=== PATIENT | male | born 1960 | race Caucasian/White ===

== ENCOUNTER 2022-10-07 13:00 | Outpatient (RCR) | payer BC, SELFPAY ==
--- NOTE | 2022-09-01 13:40 | MHC.PT.EP ---
[facility] [place] Office [place] [facility] [place] Office [address] Edna Eid [address] [phone] F: [phone] F: [phone] F: [phone] F: [phone] Physical Therapy Plan of Care Date of Evaluation: Date of Surgery: n/a Diagnosis: Parkinsons diesease/big program Assessment: Patient is a 61 year old male presenting to PT with complaints onset of tremor s/p recent diagnosis of parkinsons disease. He presents today with impairments in amplitude of movement, R sided resting tremor, altered gait mechanics. Pt's current occupation is retired with baseline physical activities including ADLs, ambulating, golf, bowling. 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 Clinical presentation today is most consistent with signs and sx associated with recent diagnosis of parkinsons disease and pt will benefit from skilled PT to address the following problems and impairments noted upon evaluation: amplitude of movement, R sided resting tremor, altered gait mechanics. These problems limit the patient with the following functional activities: ADLs, ambulating, golf, bowling. The prescribed treatment plan of care is medically necessary. Co-morbidities of hypertrophic cardiomyopathy, L ventricular aneurysm were identified and taken into considerations of plan of care. Pt was educated on HEP, role of PT, prognosis, POC. Frequency and Duration: The patient will be seen 4 x week x 4 weeks Short Term Goals: Pt will demonstrate ability to stand with NBOS on foam EC x 30 sec with minimal sway in 2 weeks. Pt will demonstrate compliance with initial BIG HEP in 1 week. [employer] Goals: Pt will demonstrate ability to perform BIG walking without cues in 4 weeks for improved ability to negotiate community. Pt will demonstrate ability to swing a golf club with BIG movements in 4 weeks for ability to participate in his hobby. Treatment Plan: Modalities to reduce pain, spasms and effusion. Manual therapy to restore motion and function. Therapeutic exercise to improve strength and flexibility. Neuromuscular re-education for posture and balance. Therapeutic activities to return to functional activities of daily living. Electronically signed by: Patt Griggs, PT, DPT, ATC Please sign and return to therapist. Thank you for your referral.
== END 2022-10-07 14:04 | disposition home or self-care (01) ==
LOC: HO.PTCHIC 13:00
PROVIDERS: PCP Internal Medicine; Visit Provider Psychiatry & Neurology Neurology
DX: G20 Parkinson's disease (principal)
CPT/HCPCS: 97112; 97116; 97162; 97530

== ENCOUNTER → 2022-11-07 10:55 | Outpatient (BNVA) | payer BC, SELFPAY | PROVIDERS: PCP Internal Medicine; Visit Provider Psychiatry & Neurology Neurology | DX: G20 Parkinson's disease (principal) ==

== ENCOUNTER 2023-05-08 10:35 | Outpatient (AMB) | payer BC, SELFPAY ==
--- NOTE | 2023-05-08 10:35 | A.OFFVIS_ITS ---
Intake Vital Signs 05/08/23 10:36 Height 5 ft 7 in Weight 154 lb 4 oz BMI 24.2 BP 128/88 Blood Pressure Location Rt brachial Position Sitting Pulse 56 Pulse Source Pulse Oximeter Pulse Oximetry (%) 98 Oxygen Delivery Method Room Air Intake Visit Reasons: 6m follow up tremor-lvm Intake Note: Patient presents for 6 month up tremor. Allergies No Known Allergies Allergy (Verified 05/08/23 10:38) HPI HPI Comments History of Present Illness Details 62y/o Right handed male comes for follow up of parkinsons disease. He is accompanied by his Heidi.He is sinemet tid. He is doing well. He is more bothered by his back. He is active - walks 2-3 miles a day, does exercise form the [employer] program. He had a cardiac surgery 3 weeks ago. previous history-He noticed intermittent right hand tremors about 3 years ago and it has progressively worsened since then .The tremors are mostly at rest .In the past 1 year the tremors are more frequent and noticable He had ICD put in 2019 and his feels it started 5 mths after that He denies memory issues. Sleep is ok . he denies nightmares, vivid dreams , REM behavior disorder. His mood is Ok and he is motivated. His speech is softer and loses his voice after exertion. No drooling . He has mild difficulty with hand writing( smaller) , using utensils, dressing , shower. His gait is slow and mildly off balance . He feels like his fabian is not there. No dizziness , no double vision . No constipation. No fh/o parkinsons No exposure to pesticides, well water or psyhcotropic medications. [facility] Medical History Hyperlipidemia Hypertrophic cardiomyopathy ICD (implantable cardioverter-defibrillator) in place Left ventricular aneurysm Surgical History AICD (automatic cardioverter/defibrillator) present History of tonsillectomy and adenoidectomy Family History Father Diabetes Heart disease ESRF (end stage renal failure) Mother Diabetes Heart disease Social History Alcohol intake: current Alcohol type: wine Patient Tobacco Use Status: Never used Tobacco Physical Exam Vital Signs: Last Vital Signs Pulse 56 05/08/23 10:36 BP 128/88 05/08/23 10:36 Pulse Ox 98 05/08/23 10:36 Oxygen Delivery Method Room Air 05/08/23 10:36 BMI result Body Mass Index 24.2 Const General: cooperative, healthy appearing and comfortable Nutritional Appearance: average body habitus Orientation/consciousness: patient oriented x3 Neck Other: mild antecollis , left laterocollis Neuro Other: UPDRS - 3 Speech 0-normal 1-Slight loss of expression,diction or volume 2.Monotone,slurred but understandable,moderately impaired 3.Marked impairment,difficult to understand 4.Unintelligible Facial expression 0-normal 1-Minimal hypomimia, poker face 2-Slight but definite abnormal diminution of facial expression 3-Moderate hypomimia,lips parted some of the time 4-Masked or fixed facies withs evere loss of facialexpression, lips parted more than 1/4 inch Rest Tremors( head, Upper, lower ) 0- absent 1-Slight and infrequent 2-Mild in amplitude and persistent- right UE 3-Moderate in amplitude and present most of the time 4-Marked amplitude and present most of the time Action and Postural tremors 0-none 1-Slight with action 2-Moderate with action 3-Moderate with posture and action 4-Marked , interferes with feeding Rigidity 0-Absent 1-Slight or detectable only when activated by mirror movements 2-Mild to Moderate 3-Marked, but full ROM achieved 4-Severe, range of motion achieved with difficulty Finger Taps 0-normal 1-Mild slowing an linda reductionin amplitude 2-Moderately impaired. Early fatiguing and occasional arrests in movement 3-Severely impaired. Frequent hesitation in initiating movements or arrests in ongoing movement. 4-can barely perform the task Hand movements 0-normal 1-mild slowing and or reduction in amplitude 2-Moderately impaired.Definite and early fatiguing, may have occasional arrests in movement. 3-Severely impaired.Frequent hesitation in initiating or arrests in movement. 4-can barely perform the task Rapid Alternating Movements of Hands 0-normal 1-Mild slowing and or reduction in amplitude 2-Moderately impaired.Definite and early fatiguing. 2-Moderately impaired. Definite and early fatiguing. May have occasional arrests in movement. 3-severely impaired.Frequent hesitation in initiating movements or arrests in ongoing movement. 4-can barely perform the task Leg agility 0-normal 1-mild slowing and reduction in amplitude 2-moderately impaired.Definite and early fatiguing , may have occasional arrest in movement. 3-severely impaired.Frequent hesitation in initiating movements or arrests in ongoing movement. 4-can barely perform the task Arising from a chair 0-Normal 1-Slow or may need more than 1 attempt 2-Pushes self up from arms of seat 3-Tends to fall back and may have to try more than one time,but can get up without difficulty 4-Unable to stand without help Posture 0-normal 1-slightly stooped, could be normal for an older person 2-moderately stooped posture, definitely abnormal, can be leaning to one side 3-severely stooped posture with kyphosis, can be moderately leaning to one side 4-Marked flexion with extreme abnormal posture Gait 0-normal 1-walks slowly,may shuffle with short steps, but no festination or propulsion- decreased arm swings R>L 2-walks with difficulty,but requires little or no assistance, may have short steps, festination or propulsion 3-severe, needs assistance 4-cannot walk even with assistance Postural stability 0-normal 1-retropulsion but recovers unaided 2-absence of postural response,will fail if not caught by the examiner 3-very unstable,tends to lose balance spontaneously 4-unable to stand without assistance Body bradykinesia and hypokinesia 0-none 1-minimal slowness,giving movement a deliberate character,could be normal for some persons.Possible reduced amplitude 3-moderate slowness,poverty or small amplitude of movement 4-marked slowness, poverty or small amplitude of movement. severely decreased blink General: patient oriented x3 Cranial nerves: Yes Facial sensation intact/muscles of mastication intact, No Bilaterally intact EOM present, Yes Nystagmus not present, Yes Normal facial strength present and Yes Symmetric palate elevation present Cognition (Neuro): normal cognition Motor exam (neuro): 5/5 motor strength present throughout Coordination: [id number] test normal Psych Appearance: grossly normal Mental Status: mental status grossly normal Assessment & Plan Assessment & Plan (1) Parkinson's disease: Code(s): G20 - Parkinson's disease Plan sinemet 1 tab tid Continue exercises. Coding Level of Care Code Est Pt Level 4 (42585) Diagnoses Parkinson's disease G20
[2023-05-08 10:36] VITALS: BP 128/88; PULSE 56; O2SAT 98; BMI 24.2
== END 2023-05-08 10:55 | disposition home or self-care (01) ==
PROVIDERS: Visit Provider Psychiatry & Neurology Neurology
DX: G20 Parkinson's disease (principal)
CPT/HCPCS: 99214

== ENCOUNTER → 2023-05-08 10:35 | Outpatient (BNVA) | payer BC, SELFPAY | PROVIDERS: Visit Provider Psychiatry & Neurology Neurology | DX: G20 Parkinson's disease (principal) ==

== ENCOUNTER 2023-12-29 10:00 | Outpatient (AMB) | payer OTHER, SELFPAY ==
[2023-12-29 10:18] VITALS: BP 122/70; PULSE 62; RESP 16; O2SAT 97; BMI 23.8
--- NOTE | 2023-12-29 10:18 | MHC.OFFVIS ---
Intake Vital Signs 12/29/23 10:18 Height 5 ft 7 in Weight 152 lb BMI 23.8 BP 122/70 Blood Pressure Location Rt brachial Position Sitting Respiration 16 Pulse 62 Pulse Source Pulse Oximeter Pulse Oximetry (%) 97 Oxygen Delivery Method Room Air Intake Visit Reasons: 6m follow up tremor-LVM Intake Note: Pt presents for a 6 month follow up for tremors. 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 He is accompanied by his Heidi.He is sinemet tid. He is doing well. He is more bothered by his back.He is scheduled for injections. He has noticed a mild worsening of his tremors. He is active - walks 2-3 miles a day, does exercise form the [employer] program. previous history-He noticed intermittent right hand tremors about 3 years ago and it has progressively worsened since then .The tremors are mostly at rest .In the past 1 year the tremors are more frequent and noticable He had ICD put in 2019 and his feels it started 5 mths after that He denies memory issues. Sleep is ok . he denies nightmares, vivid dreams , REM behavior disorder. His mood is Ok and he is motivated. His speech is softer and loses his voice after exertion. No drooling . He has mild difficulty with hand writing( smaller) , using utensils, dressing , shower. His gait is slow and mildly off balance . He feels like his fabian is not there. No dizziness , no double vision . No constipation. No fh/o parkinsons No exposure to pesticides, well water or psyhcotropic medications. [facility] Medical History Parkinson's disease without dyskinesia Elective replacement of implantable cardioverter-defibrillator (ICD) battery required ICD (implantable cardioverter-defibrillator) in place Left ventricular aneurysm Hypertrophic cardiomyopathy Hyperlipidemia Surgical History History of tonsillectomy and adenoidectomy AICD (automatic cardioverter/defibrillator) present Family History Father Diabetes Heart disease ESRF (end stage renal failure) Mother Diabetes Heart disease Social History Alcohol intake: current Alcohol type: wine Patient Tobacco Use Status: Never used Tobacco Physical Exam Vital Signs: Last Vital Signs Pulse 62 12/29/23 10:18 Resp 16 12/29/23 10:18 BP 122/70 12/29/23 10:18 Pulse Ox 97 12/29/23 10:18 Oxygen Delivery Method Room Air 12/29/23 10:18 BMI result Body Mass Index 23.8 Const General: cooperative, healthy appearing and comfortable Nutritional Appearance: average body habitus Orientation/consciousness: patient oriented x3 Neck Other: mild antecollis , left laterocollis Neuro Other: UPDRS - 3 Speech 0-normal 1-Slight loss of expression,diction or volume 2.Monotone,slurred but understandable,moderately impaired 3.Marked impairment,difficult to understand 4.Unintelligible Facial expression 0-normal 1-Minimal hypomimia, poker face 2-Slight but definite abnormal diminution of facial expression 3-Moderate hypomimia,lips parted some of the time 4-Masked or fixed facies withs evere loss of facialexpression, lips parted more than 1/4 inch Rest Tremors( head, Upper, lower ) 0- absent 1-Slight and infrequent 2-Mild in amplitude and persistent- right UE 3-Moderate in amplitude and present most of the time 4-Marked amplitude and present most of the time Action and Postural tremors 0-none 1-Slight with action 2-Moderate with action 3-Moderate with posture and action 4-Marked , interferes with feeding Rigidity 0-Absent 1-Slight or detectable only when activated by mirror movements 2-Mild to Moderate 3-Marked, but full ROM achieved 4-Severe, range of motion achieved with difficulty Finger Taps 0-normal 1-Mild slowing an linda reductionin amplitude 2-Moderately impaired. Early fatiguing and occasional arrests in movement 3-Severely impaired. Frequent hesitation in initiating movements or arrests in ongoing movement. 4-can barely perform the task Hand movements 0-normal 1-mild slowing and or reduction in amplitude 2-Moderately impaired.Definite and early fatiguing, may have occasional arrests in movement. 3-Severely impaired.Frequent hesitation in initiating or arrests in movement. 4-can barely perform the task Rapid Alternating Movements of Hands 0-normal 1-Mild slowing and or reduction in amplitude 2-Moderately impaired.Definite and early fatiguing. 2-Moderately impaired. Definite and early fatiguing. May have occasional arrests in movement. 3-severely impaired.Frequent hesitation in initiating movements or arrests in ongoing movement. 4-can barely perform the task Leg agility 0-normal 1-mild slowing and reduction in amplitude 2-moderately impaired.Definite and early fatiguing , may have occasional arrest in movement. 3-severely impaired.Frequent hesitation in initiating movements or arrests in ongoing movement. 4-can barely perform the task Arising from a chair 0-Normal 1-Slow or may need more than 1 attempt 2-Pushes self up from arms of seat 3-Tends to fall back and may have to try more than one time,but can get up without difficulty 4-Unable to stand without help Posture 0-normal 1-slightly stooped, could be normal for an older person 2-moderately stooped posture, definitely abnormal, can be leaning to one side 3-severely stooped posture with kyphosis, can be moderately leaning to one side 4-Marked flexion with extreme abnormal posture Gait 0-normal 1-walks slowly,may shuffle with short steps, but no festination or propulsion- decreased arm swings R>L 2-walks with difficulty,but requires little or no assistance, may have short steps, festination or propulsion 3-severe, needs assistance 4-cannot walk even with assistance Postural stability 0-normal 1-retropulsion but recovers unaided 2-absence of postural response,will fail if not caught by the examiner 3-very unstable,tends to lose balance spontaneously 4-unable to stand without assistance Body bradykinesia and hypokinesia 0-none 1-minimal slowness,giving movement a deliberate character,could be normal for some persons.Possible reduced amplitude 3-moderate slowness,poverty or small amplitude of movement 4-marked slowness, poverty or small amplitude of movement. severely decreased blink General: patient oriented x3 Cranial nerves: Yes Facial sensation intact/muscles of mastication intact, No Bilaterally intact EOM present, Yes Nystagmus not present, Yes Normal facial strength present and Yes Symmetric palate elevation present Cognition (Neuro): normal cognition Motor exam (neuro): 5/5 motor strength present throughout Coordination: [id number] test normal Psych Appearance: grossly normal Mental Status: mental status grossly normal Assessment & Plan Assessment & Plan (1) Parkinson's disease without dyskinesia: Code(s): G20.A1 - Parkinson's disease without dyskinesia, without mention of fluctuations Plan sinemet 25/100 1 tab tid Continue exercises. Coding Level of Care Code Est Pt Level 4 (93636) Diagnoses Parkinson's disease without dyskinesia G20.A1
== END 2023-12-29 10:37 | disposition home or self-care (01) ==
PROVIDERS: PCP Internal Medicine; Visit Provider Psychiatry & Neurology Neurology
DX: G20.A1 Parkinson's disease without dyskinesia, without mention of fluctuations (principal)
CPT/HCPCS: 99214

== ENCOUNTER → 2023-12-29 10:00 | Outpatient (BNVA) | payer OTHER, SELFPAY | PROVIDERS: PCP Internal Medicine; Visit Provider Psychiatry & Neurology Neurology ==

== ENCOUNTER 2024-06-25 08:30 | Outpatient (AMB) | payer OTHER, SELFPAY ==
--- NOTE | 2024-06-25 08:39 | MHC.OFFVIS ---
Vital Signs 06/25/24 08:40 Height 5 ft 7 in Weight 155 lb BMI 24.3 BP 132/78 Blood Pressure Location Rt brachial Position Sitting Respiration 16 Pulse 66 Pulse Source Pulse Oximeter Pulse Oximetry (%) 98 Oxygen Delivery Method Room Air Intake Visit Reasons: 6 month F/U - LVM with appt details Intake Note: Pt presents for a 6 month follow up for Parkinson's. 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 He is accompanied by his Heidi.He is sinemet tid. He is doing well. He has chronic back pain - sees [facility] and had injections to his back which helped. He has noticed a mild worsening of his tremors. He is active - walks 2-3 miles a day, does exercise form the [employer] program.Sleep is ok . he denies nightmares, vivid dreams , REM behavior disorder. His mood is Ok and he is motivated. His speech is softer and loses his voice after exertion. No drooling . He has mild difficulty with hand writing( smaller) , using utensils, dressing , shower. His gait is slow and mildly off balance . Initial History--He noticed intermittent right hand tremors about 3 years ago and it has progressively worsened since then .The tremors are mostly at rest .In the past 1 year the tremors are more frequent and noticable He had ICD put in 2019 and his feels it started 5 mths after that He denies memory issues. Sleep is ok . he denies nightmares, vivid dreams , REM behavior disorder. His mood is Ok and he is motivated. His speech is softer and loses his voice after exertion. No drooling . He has mild difficulty with hand writing( smaller) , using utensils, dressing , shower. His gait is slow and mildly off balance . He feels like his fabian is not there. No dizziness , no double vision . No constipation. No fh/o parkinsons No exposure to pesticides, well water or psyhcotropic medications. [facility] Medical History (Updated 06/25/24 @ 09:00 by Jeimy Rios MD) Back pain Parkinson's disease without dyskinesia Elective replacement of implantable cardioverter-defibrillator (ICD) battery required ICD (implantable cardioverter-defibrillator) in place Left ventricular aneurysm Hypertrophic cardiomyopathy Hyperlipidemia Surgical History History of tonsillectomy and adenoidectomy AICD (automatic cardioverter/defibrillator) present Family History Father Diabetes Heart disease ESRF (end stage renal failure) Mother Diabetes Heart disease Social History Alcohol intake: current Alcohol type: wine Patient Tobacco Use Status: Never used Tobacco Physical Exam Vital Signs: Last Vital Signs Pulse 66 06/25/24 08:40 Resp 16 06/25/24 08:40 BP 132/78 06/25/24 08:40 Pulse Ox 98 06/25/24 08:40 Oxygen Delivery Method Room Air 06/25/24 08:40 BMI result Body Mass Index 24.3 Const General: cooperative, healthy appearing and comfortable Nutritional Appearance: average body habitus Orientation/consciousness: patient oriented x3 Neck Other: mild antecollis , left laterocollis Neuro Other: UPDRS - 3 Speech 1-Slight loss of expression,diction or volume Facial expression 1-Minimal hypomimia, poker face Rest Tremors( head, Upper, lower) 2-Mild in amplitude and persistent- right UE , right LE and left LE Action and Postural tremors 0-none Rigidity 2-Mild to Moderate Finger Taps 1-Mild slowing and or reduction in amplitude Hand movements 1-mild slowing and or reduction in amplitude Rapid Alternating Movements of Hands 1-Mild slowing and or reduction in amplitude Leg agility 1-mild slowing and reduction in amplitude Arising from a chair 0-Normal Posture 0-normal 1-slightly stooped, could be normal for an older person Gait 1-walks slowly,may shuffle with short steps, but no festination or propulsion- decreased arm swings R>L Postural stability 1-retropulsion but recovers unaided Body bradykinesia and hypokinesia 1-minimal slowness,giving movement a deliberate character,could be normal for some persons.Possible reduced amplitude severely decreased blink General: patient oriented x3 Cranial nerves: Yes Facial sensation intact/muscles of mastication intact, No Bilaterally intact EOM present, Yes Nystagmus not present, Yes Normal facial strength present and Yes Symmetric palate elevation present Cognition (Neuro): normal cognition Motor exam (neuro): 5/5 motor strength present throughout Coordination: [id number] test normal Psych Appearance: grossly normal Mental Status: mental status grossly normal Assessment & Plan Assessment & Plan (1) Parkinson's disease without dyskinesia: Code(s): G20.A1 - Parkinson's disease without dyskinesia, without mention of fluctuations Category: Medical (2) Back pain: Code(s): M54.9 - Dorsalgia, unspecified Category: Medical Plan sinemet 25/100 1 tab tid I will trial him on gabapentin 100-300mg qhs for back pain Continue exercises- suggested therapeutic pool exercises. Coding Level of Care Code Est Pt Level 4 (18541) Complex EM visit Add On G2211 Diagnoses Parkinson's disease without dyskinesia G20.A1 Back pain M54.9
[2024-06-25 08:40] VITALS: BP 132/78; PULSE 66; RESP 16; O2SAT 98; BMI 24.3
== END 2024-06-25 09:10 | disposition home or self-care (01) ==
PROVIDERS: PCP Internal Medicine; Visit Provider Psychiatry & Neurology Neurology
DX: G20.A1 Parkinson's disease without dyskinesia, without mention of fluctuations (principal); M54.9 Dorsalgia, unspecified
CPT/HCPCS: 99214; G2211

== ENCOUNTER → 2024-06-25 08:30 | Outpatient (BNVA) | payer OTHER, SELFPAY | PROVIDERS: PCP Internal Medicine; Visit Provider Psychiatry & Neurology Neurology ==

== ENCOUNTER 2024-11-22 07:56 | Outpatient (AMB) | payer OTHER, SELFPAY ==
[2024-11-22 07:59] VITALS: BP 118/84; PULSE 60; O2SAT 98; BMI 23.8
--- NOTE | 2024-11-22 07:59 | A.OFFVIS_ITS ---
Vital Signs 11/22/24 07:59 Height 5 ft 7 in Weight 152 lb BMI 23.8 BP 118/84 Blood Pressure Location Rt brachial Position Sitting Pulse 60 Pulse Source Pulse Oximeter Pulse Oximetry (%) 98 Oxygen Delivery Method Room Air Intake Visit Reasons: Follow Up 6mo Intake Note: patient following up gabapentin trial. patient not taking gabapentin not working for him. Allergies No Known Allergies Allergy (Verified 11/22/24 08:03) HPI Comments Details: 63y/o Right handed male comes for follow up of parkinsons disease. He is accompanied by his Heidi. He feels his tremors are worse and hand dexterity is worse.He did not try gabapentin as recommended. He has chronic back pain - sees [employer] and sports and had injections to his back which helped. He is active - walks 2-3 miles a day, does exercise form the [employer] program.Sleep is ok . he denies nightmares, vivid dreams , REM behavior disorder. His mood is Ok most of the time but started getting panic attacks since his MRI 3 weeks ago. . His speech is softer and loses his voice after exertion. No drooling . He has mild difficulty with hand writing( smaller) , using utensils, dressing , shower. His gait is slow and mildly off balance . Initial History--He noticed intermittent right hand tremors about 3 years ago and it has progressively worsened since then .The tremors are mostly at rest .In the past 1 year the tremors are more frequent and noticable He had ICD put in 2019 and his feels it started 5 mths after that He denies memory issues. Sleep is ok . he denies nightmares, vivid dreams , REM behavior disorder. His mood is Ok and he is motivated. His speech is softer and loses his voice after exertion. No drooling . He has mild difficulty with hand writing( smaller) , using utensils, dressing , shower. His gait is slow and mildly off balance . He feels like his fabian is not there. No dizziness , no double vision . No constipation. No fh/o parkinsons No exposure to pesticides, well water or psyhcotropic medications. [facility] Medical History (Updated 11/22/24 @ 08:48 by Jeimy Rios MD) Anxiety Back pain Parkinson's disease without dyskinesia Elective replacement of implantable cardioverter-defibrillator (ICD) battery required ICD (implantable cardioverter-defibrillator) in place Left ventricular aneurysm Hypertrophic cardiomyopathy Hyperlipidemia Surgical History History of tonsillectomy and adenoidectomy AICD (automatic cardioverter/defibrillator) present Family History Father Diabetes Heart disease ESRF (end stage renal failure) Mother Diabetes Heart disease Social History Alcohol intake: current Alcohol type: wine Patient Tobacco Use Status: Never used Tobacco Physical Exam Vital Signs: Last Vital Signs Pulse 60 11/22/24 07:59 BP 118/84 11/22/24 07:59 Pulse Ox 98 11/22/24 07:59 Oxygen Delivery Method Room Air 11/22/24 07:59 BMI result Body Mass Index 23.8 Const General: cooperative, healthy appearing and comfortable Nutritional Appearance: average body habitus Orientation/consciousness: patient oriented x3 Neck Other: mild antecollis , left laterocollis Neuro Other: UPDRS - 3 Speech 1-Slight loss of expression,diction or volume Facial expression 1-Minimal hypomimia, poker face Rest Tremors( head, Upper, lower) 2-Mild in amplitude and persistent- right UE , right LE and left LE Action and Postural tremors 0-none Rigidity 2-Mild to Moderate Finger Taps 1-Mild slowing and or reduction in amplitude Hand movements 1-mild slowing and or reduction in amplitude Rapid Alternating Movements of Hands 1-Mild slowing and or reduction in amplitude Leg agility 1-mild slowing and reduction in amplitude Arising from a chair 0-Normal Posture 0-normal 1-slightly stooped, could be normal for an older person Gait 1-walks slowly,may shuffle with short steps, but no festination or propulsion- decreased arm swings R>L Postural stability 1-retropulsion but recovers unaided Body bradykinesia and hypokinesia 1-minimal slowness,giving movement a deliberate character,could be normal for some persons.Possible reduced amplitude severely decreased blink General: patient oriented x3 Cranial nerves: Yes Facial sensation intact/muscles of mastication intact, No Bilaterally intact EOM present, Yes Nystagmus not present, Yes Normal facial strength present and Yes Symmetric palate elevation present Cognition (Neuro): normal cognition Motor exam (neuro): 5/5 motor strength present throughout Coordination: nyxezy-op-xqyr test normal Psych Appearance: grossly normal Mental Status: mental status grossly normal Assessment & Plan Assessment & Plan (1) Parkinson's disease without dyskinesia: Code(s): G20.A1 - Parkinson's disease without dyskinesia, without mention of fluctuations Category: Medical Qualifiers: Fluctuating manifestations: without fluctuating manifestations Qualified Code(s): G20.A1 - Parkinson's disease without dyskinesia, without mention of fluctuations (2) Back pain: Code(s): M54.9 - Dorsalgia, unspecified Category: Medical (3) Anxiety: Code(s): F41.9 - Anxiety disorder, unspecified Category: Medical Plan sinemet 25/100 1 tab tid gabapentin 100-300mg qhs for back pain Lorazepam 0.5mg a sneeded for panic attacks Continue exercises- suggested therapeutic pool exercises. Medications: New lorazepam (Ativan) 0.5 mg PO DAILY PRN 14 tabs 3RF anxiety Coding Level of Care Code Est Pt Level 4 (33263) Complex EM visit Add On G2211 Diagnoses Parkinson's disease without dyskinesia or fluctuating manifestations G20.A1 Fluctuating manifestations: without fluctuating manifestations Back pain M54.9 Anxiety F41.9
== END 2024-11-22 08:39 | disposition home or self-care (01) ==
PROVIDERS: PCP Internal Medicine; Visit Provider Psychiatry & Neurology Neurology
DX: G20.A1 Parkinson's disease without dyskinesia, without mention of fluctuations (principal); M54.9 Dorsalgia, unspecified; F41.9 Anxiety disorder, unspecified
CPT/HCPCS: 99214; G2211

== ENCOUNTER 2025-05-05 08:57 | Outpatient (AMB) | payer OTHER, SELFPAY ==
[2025-05-05 09:13] VITALS: BP 140/90; PULSE 58; O2SAT 98; BMI 23.8
--- NOTE | 2025-05-05 09:13 | A.OFFVIS_ITS ---
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 He is accompanied by his Heidi. He feels his parkinsons is stable. He has chronic back pain - sees [employer] [facility] and sports and had injections to his back which helped. He is active - walks 2-3 miles a day, does exercise form the [employer] program.Sleep is ok . he denies nightmares, vivid dreams , REM behavior disorder. His mood is Ok most of the time. No recent panic attacks . His speech is softer and loses his voice after exertion. No drooling . He has mild difficulty with hand writing( smaller) , using utensils, dressing , shower. His gait is slow and mildly off balance . Initial History--He noticed intermittent right hand tremors about 3 years ago and it has progressively worsened since then .The tremors are mostly at rest .In the past 1 year the tremors are more frequent and noticable He had ICD put in 2019 and his feels it started 5 mths after that He denies memory issues. Sleep is ok . he denies nightmares, vivid dreams , REM behavior disorder. His mood is Ok and he is motivated. His speech is softer and loses his voice after exertion. No drooling . He has mild difficulty with hand writing( smaller) , using utensils, dressing , shower. His gait is slow and mildly off balance . He feels like his fabian is not there. No dizziness , no double vision . No constipation. No fh/o parkinsons No exposure to pesticides, well water or psyhcotropic medications. [facility] Medical History Anxiety Back pain Parkinson's disease without dyskinesia Elective replacement of implantable cardioverter-defibrillator (ICD) battery required ICD (implantable cardioverter-defibrillator) in place Left ventricular aneurysm Hypertrophic cardiomyopathy Hyperlipidemia Surgical History History of tonsillectomy and adenoidectomy AICD (automatic cardioverter/defibrillator) present Family History Father Diabetes Heart disease ESRF (end stage renal failure) Mother Diabetes Heart disease Social History Alcohol intake: current Alcohol type: wine Patient Tobacco Use Status: Never used Tobacco Physical Exam Vital Signs: Last Vital Signs Pulse 58 05/05/25 09:13 BP 140/90 H 05/05/25 09:13 Pulse Ox 98 05/05/25 09:13 Oxygen Delivery Method Room Air 05/05/25 09:13 BMI result Body Mass Index 23.8 Const General: cooperative, healthy appearing and comfortable Nutritional Appearance: average body habitus Orientation/consciousness: patient oriented x3 Neck Other: mild antecollis , left laterocollis Neuro Other: UPDRS - 3 Speech 1-Slight loss of expression,diction or volume Facial expression 1-Minimal hypomimia, poker face Rest Tremors( head, Upper, lower) 2-Mild in amplitude and persistent- right UE , right LE and left LE Action and Postural tremors 0-none Rigidity 2-Mild to Moderate Finger Taps 1-Mild slowing and or reduction in amplitude Hand movements 1-mild slowing and or reduction in amplitude Rapid Alternating Movements of Hands 1-Mild slowing and or reduction in amplitude Leg agility 1-mild slowing and reduction in amplitude Arising from a chair 0-Normal Posture 0-normal 1-slightly stooped, could be normal for an older person Gait 1-walks slowly,may shuffle with short steps, but no festination or propulsion- decreased arm swings R>L Postural stability 1-retropulsion but recovers unaided Body bradykinesia and hypokinesia 1-minimal slowness,giving movement a deliberate character,could be normal for some persons.Possible reduced amplitude severely decreased blink General: patient oriented x3 Cranial nerves: Yes Facial sensation intact/muscles of mastication intact, No Bilaterally intact EOM present, Yes Nystagmus not present, Yes Normal facial strength present and Yes Symmetric palate elevation present Cognition (Neuro): normal cognition Motor exam (neuro): 5/5 motor strength present throughout Coordination: uktzln-vv-swpt test normal Psych Appearance: grossly normal Mental Status: mental status grossly normal Assessment & Plan Assessment & Plan (1) Parkinson's disease without dyskinesia: Code(s): G20.A1 - Parkinson's disease without dyskinesia, without mention of fluctuations Category: Medical Qualifiers: Fluctuating manifestations: without fluctuating manifestations Qualified Code(s): G20.A1 - Parkinson's disease without dyskinesia, without mention of fluctuations (2) Back pain: Code(s): M54.9 - Dorsalgia, unspecified Category: Medical (3) Anxiety: Code(s): F41.9 - Anxiety disorder, unspecified Category: Medical Plan sinemet 25/100 1 tab tid pregabalin 25 mg bid Lorazepam 0.5mg as needed for panic attacks Continue exercises- suggested therapeutic pool exercises. Coding Level of Care Code Est Pt Level 4 (78012) Complex EM visit Add On G2211 Diagnoses Parkinson's disease without dyskinesia or fluctuating manifestations G20.A1 Fluctuating manifestations: without fluctuating manifestations Back pain M54.9 Anxiety F41.9
--- OUTSIDE RECORDS SUMMARY | 2025-05-05 09:22 | XMS_ITS | Clinical Summary ---
Author Organization [facility] Address [address] [facility] [address] [place] [address] Care Team Providers Care Computer Animator Name Role Phone Rasheed Rodriguez DO Primary Care Provider [phone] Allergies No known active allergies Medications metoprolol succinate XL (Toprol-XL) 50 mg 24 hr tablet Take 50 mg by mouth in the morning. 08/08/20 22 Active carbidopa-levodopa (Sinemet) 25-100 mg tablet Take by mouth. 08/05/20 22 Active Eliquis 5 mg tabletIndications: Hypertrophic cardiomyopathy (Multi-HCC),Presen ce of automatic implantable cardioverter-defib rillator TAKE ONE TABLET BY MOUTH TWICE A DAY 60 tablet 04/07/20 25 Active Eliquis 5 mg tabletIndications: Hypertrophic cardiomyopathy (Multi-HCC),Presen ce of automatic implantable cardioverter-defib rillator Take 1 tablet (5 mg) by mouth twice daily. 60 tablet 04/15/20 24 025 Discontinued Active Problems Problem Noted Date Diagnosed Date Presence of automatic implan table cardioverter-defibrillator 03/02/2018 Overview (08/14/2024): [employer] S-ICD 03/30/2018; generator change 04/11/2023 Assessment & Plan (08/14/2024 12:32 PM EST): His S-ICD is functioning normally . There were no treated or untreated arrhythmia detections. Remote monitoring including weekly check ins will continue and he will be scheduled to follow up in clinic in 1 year. Assessment & Plan (08/16/2023 3:00 PM EST): His S-ICD is functioning normally s/p generator change in April.. There were no treated or untreated arrhythmia detections. Remote monitoring including weekly check ins will continue and he will be scheduled to follow up in clinic in 1 year. Assessment & Plan (08/24/2022 4:00 PM EST): His S-ICD is functioning normally despite electrode alert and battery advisory. The lead impedance and battery drain are normal. There were no treated or untreated arrhythmia detections. Remote monitoring including weekly check ins will continue and he will be scheduled to follow up in clinic in 1 year. Hypertrophic cardiomyopathy (Multi-HCC) Assessment & Plan (08/14/2024 12:32 PM EST): Mr. Dumont remains asymptomatic from his apical HCM and without arrhythmia detections on metoprolol. He continues on Eliquis for stroke prevention without any bleeding issues. No med changes were made. ECHO today is unchanged from 2020, there is a moderate size apical aneurysm. There is no thrombus. There is increased LV wall thickness. Apical hypertrophy is present. Left ventricular systolic function is normal. Ejection Fraction = 60%. I have provided contact information for Dr. Pallavi Tran in our HCM center. [phone] He will arrange a new patient visit next year with the Arrhythmia clinic visit. Assessment & Plan (08/16/2023 3:01 PM EST): Mr. Dumont remains asymptomatic from his apical HCM and without arrhythmia detections on metoprolol. He continues on Eliquis for stroke prevention without any bleeding issues. No med changes were made. ECHO today is unchanged from 2020, there is a moderate size apical aneurysm. There is no thrombus. There is increased LV wall thickness. Apical hypertrophy is present. Left ventricular systolic function is normal. Ejection Fraction = 60%. Assessment & Plan (08/24/2022 4:08 PM EST): Mr. Dumont remains asymptomatic from his apical HCM and without arrhythmia detections on metoprolol. He continues on Eliquis for stroke prevention without any bleeding issues. No med changes were made. I have ordered a repeat echo to be done the same day as his follow up in 1 year. Encounters Date Type Department Care Team Description 04/06/2025 Refill [facility] Arrhythmia [address] [place] [address] Doreen Gamez NP Hypertrophic cardiomyopathy (Multi-HCC); Presence of automatic implantable cardioverter-defibril lator 02/14/2025 Telephone [facility] Arrhythmia [address], [address] [place] [id number] Rashawn Mcdermott MD 02/12/2025 3:58 PM EDT - 02/12/2025 11:59 PM EDT Hospital Encounter [facility] [address] [place] [address] Hypertrophic cardiomyopathy (Multi-HCC) Discharge Disposition: Home or self care 02/12/2025 Telephone [facility] Arrhythmia [address], [address] [place] [id number] James Webber RN from Last 3 Months Family History Medical History Relation Name Comments Heart disease Father No Known Problems Other no family history of HCM or SCD, including siblings and children Relation Name Status Comments Father Mother Alive Other Social History Tobacco Use Types Packs/Day Years Used Date Smoking Tobacco: Never Smokeless Tobacco: Never Tobacco Cessation:Counseling Given: Not Answered Alcohol Use Standard Drinks/Week Comments Yes 0 (1 standard drink = 0.6 oz pur e alcohol) ocasionally Sex and Gender Information Value Date Recorded Sex Assigned at Male 04/21/2022 11:07 AM EDT Legal Sex Male 11:53 PM EST Gender Identity Male 04/21/2022 11:07 AM EDT Sexual Orientation Straight 04/09/2024 5: 07 PM EDT Last Filed Vital Signs Vital Sign Reading Time Taken Comments Blood Pressure 120/82 08/14/2024 11:33 AM EST Pulse 56 08/14/2024 11:33 AM EST Temperature 35.8 C (96.5 F) 04/11/2023 5:45 PM EDT Respiratory Rate 16 04/11/2023 6:00 PM EDT Oxygen Saturation 97% 08/14/2024 11:33 AM EST Inhaled Oxygen Concentration - - Weight 68.5 kg (151 lb) 08/14/2024 11:33 AM EST Height 170.2 cm (5' 7.01 ) 08/14/2024 11:33 AM Negin SPENCE Body Mass Index 23.64 08/14/2024 11:33 AM EST Plan of Treatment Upcoming Encounters Date Type Department Care Team (Late st Contact Info) Description 08/13/2025 10:30 AM EST Appointment [facility] [address] [place] [address] 08/13/2025 11:20 AM EST Office Visit [facility] Arrhythmia [address] [facility] [address] [place] [address] Rashawn Mcdermott MD [address] [facility] [address] [place] [address] Health Maintenance Due Date Last Done Comments CT Colonography 1959 Colonoscopy 1959 Colorectal Cancer Screening 1959 FIT-DNA 1959 FIT 1959 FOBT 1959 HIV Screening 1959 Lipid Panel 1959 Sigmoidoscopy 1959 Welcome to Medicare Visit (IPPE) 1959 MMR Vaccines (1 of 1 - Standard series) 1960 Hepatitis C Screening 1977 DTaP/Tdap/Td Vaccines (1 - Tdap) 1978 Pneumococcal Vaccine: 50+ Years (1 of 1 - PCV) 2009 Zoster Vaccines (1 of 2) 2009 COVID-19 Vaccine (3 - 2023-2 5 season) 2024 09/11/2021, 08/14/2021 Depression Screening 10/02/2024 Influenza Vaccine (#1) 2025 HIB Vaccines Aged Out No longer eligi ble based on patient's age to complete this topic HPV Vaccines Aged Out No longer eligi ble based on patient's age to complete this topic Hepatitis A Vaccines Aged Out No long er eligible based on patient's age to complete this topic Hepatitis B Vaccines Aged Out No long er eligible based on patient's age to complete this topic IPV Vaccines Aged Out No longer eligi ble based on patient's age to complete this topic Meningococcal B Vaccine Aged Out No l onger eligible based on patient's age to complete this topic Meningococcal Vaccine Aged Out No jimmie martine eligible based on patient's age to complete this topic Rotavirus Vaccines Aged Out No longer eligible based on patient's age to complete this topic Medical Devices Implanted Type Area Coagulator Device Identifier Shelf Expiration Date Model / Serial / Lot [id number] 3501 Emblem S-Icd Electrode [id number] Implanted: (Quantity not on file) Cardiac Lead [employer] 3501 EMBLEM S-ICD ELECTRODE / [id number] / [id number] Emble Mri S-Icd [id number] Implanted: (Quantity not on file) ICD [employer] A219 EMBLEM MRI S-ICD / [id number] / Scid Emblem Mri Pulse Generato - [id number] - [id number] Implanted:Qty : 1 on 04/11/2023 by Rashawn Mcdermott MD at [facility] Single Chamber ICD [employer]/GUID ANT CRM [id number] 03/14/2025 A219 / [id number] / Procedures Procedure Name Priority Date/Time Associated Diagnosis Comments REMOTE - ICD Routine 02/12/2025 3:58 PM EDT Hypertrophic cardiomyopathy (Multi-HCC) from Last 3 Months Results * REMOTE - ICD (02/12/2025 3:58 PM EDT) Date Time Interrogation Session [id number] [employer] Implantable Pulse Generator Coagulator [employer]F [employer]ACEART Implantable Pulse Generator Model A219 EMBLEM MRI S-ICD [employer] Implantable Pulse Generator Serial Number [id number] [employer] Type Interrogation Session Remote [employer] Clinic Name [facility] [employer] Implantable Pulse Generator Type Defibrillator [facility] [facility] Implantable Pulse Generator Implant Date [id number] [employer] Implantable Lead Coagulator [employer]F PACEART Implantable Lead Model 3501 EMBLEM S-ICD Electrode [employer] Implantable Lead Serial Number [id number] [employer] Implantable Lead Implant Date [id number] [employer] Implantable Lead Location Unknown [employer] Zone Setting Type Category VF [employer] Zone Setting Vendor Type Category VF [employer] Zone Setting Detection Interval 250 ms [employer] Zone Setting Type Category VT WF PACEART Zone Setting Vendor Type Category VT WF P[employer]ART Zone Setting Detection Interval 300 ms [employer] Battery Date Time of Measurements [id number] [employer] Battery Status Beginning of Service [employer] Battery Remaining Percentage 80 % [employer] Therapy Statistic Recent Shocks Delivered 0 [employer] Therapy Statistic Recent Date Time Start [employer] Therapy Statistic Recent Date Time End [id number] [employer] Therapy Statistic Total Shocks Delivered 0 WF P[employer]ART Therapy Statistic Total Date Time Start 18552994300657 WF P[employer] Therapy Statistic Total Date Time End [id number] [employer] Episode Statistic Recent Count 0 WF PACEART Episode Statistic Type Category Other WF PACEART Episode Statistic Recent Date Time Start [id number] WF P[employer]ART Episode Statistic Recent Date Time End [id number] WF PACEART Episode Statistic Total Count 0 WF PACEART Episode Statistic Type Category Other WF PACEART Episode Statistic Total Count 0 WF PACEART Episode Statistic Type Category VF WF PACEART Episode Statistic Vendor Type Category VF WF PACEART Episode Statistic Total Date Time Start [id number] WF P[employer]ART Episode Statistic Total Date Time End [id number] [employer] Episode Statistic Total Date Time Start [id number] [employer] Episode Statistic Total Date Time End [id number] [employer] Summary Statement See PDF for full report. Scheduled remote for SICD shows normal function. There is 80% battery remaining. This 3501 model electrode is on advisory. The lead impedance is 80 ohms. There were no treated or untreated episodes. Sensing looks appropriate in the secondary vector. The SMART PASS remains on. [facility] Billable Encounter Yes [facility] 02/12/2025 7:49 AM EDT Narrative [facility] [facility] - 02/14/2025 10:46 AM EDT I agree with the findings as outlined in the summary statement. Rashawn Mcdermott MD Cardiac Arrhythmia Service us Rashawn Mcdermott MD CV IMPLANTABLE CARDIAC DEV ICE PROCEDURES Final Result [employer] from Last 3 Months Insurance [employer] Care Teams Computer Animator Relationship Specialty Start Date End Date Rasheed Rodriguez DO [address] [place] [address] ART [place] [phone] PCP - General Internal Medicine 10/05/24
== END 2025-05-05 09:31 | disposition home or self-care (01) ==
PROVIDERS: PCP Internal Medicine; Visit Provider Psychiatry & Neurology Neurology
DX: G20.A1 Parkinson's disease without dyskinesia, without mention of fluctuations (principal); M54.9 Dorsalgia, unspecified; F41.9 Anxiety disorder, unspecified
CPT/HCPCS: 99214; G2211

== ENCOUNTER 2025-08-18 10:48 | Outpatient (AMB) | payer OTHER, SELFPAY ==
[2025-08-18 11:05] VITALS: BP 132/80; PULSE 65; O2SAT 98; BMI 22.9
--- NOTE | 2025-08-18 11:05 | A.OFFVIS_ITS ---
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 He is accompanied by his Heidi. He feels his parkinsons is worse. he is slower. His mood is worse and has panic attacks.anytime his back worsens his anxiety and tremors worsens. . His speech is softer and loses his voice after exertion. No drooling . He has mild difficulty with hand writing( smaller) , using utensils, dressing , shower. His gait is slow and mildly off balance . For past 2 mths his symptoms have worsened - with worsening of his back , sleep, anxiety etc.He is barely sleeping because of anxiety and low back pain . He cannot get comfortable.He paces all night He has chronic back pain - sees [facility] and had injections to his back which helped. He is active - walks 2-3 miles a day, does exercise form the [employer].Sleep is ok . he denies nightmares, vivid dreams , REM behavior disorder. . Initial History--He noticed intermittent right hand tremors about 3 years ago and it has progressively worsened since then .The tremors are mostly at rest .In the past 1 year the tremors are more frequent and noticable He had ICD put in 2019 and his feels it started 5 mths after that He denies memory issues. Sleep is ok . he denies nightmares, vivid dreams , REM behavior disorder. His mood is Ok and he is motivated. His speech is softer and loses his voice aft er exertion. No drooling . He has mild difficulty with hand writing( smaller) , using utensils, dressing , shower. His gait is slow and mildly off balance . He feels like his fabian is not there. No dizziness , no double vision . No constipation. No fh/o parkinsons No exposure to pesticides, well water or psyhcotropic medications. FORMERLY [facility], 1928–1983 Medical History Anxiety Back pain Parkinson's disease without dyskinesia Elective replacement of implantable cardioverter-defibrillator (ICD) battery required ICD (implantable cardioverter-defibrillator) in place Left ventricular aneurysm Hypertrophic cardiomyopathy Hyperlipidemia Surgical History History of tonsillectomy and adenoidectomy AICD (automatic cardioverter/defibrillator) present Family History Father Diabetes Heart disease ESRF (end stage renal failure) Mother Diabetes Heart disease Social History Alcohol intake: current Alcohol type: wine Patient Tobacco Use Status: Never used Tobacco Physical Exam Vital Signs: Last Vital Signs Pulse 65 08/18/25 11:05 BP 132/80 08/18/25 11:05 Pulse Ox 98 08/18/25 11:05 Oxygen Delivery Method Room Air 08/18/25 11:05 BMI result Body Mass Index 22.9 Const General: cooperative, healthy appearing and comfortable Nutritional Appearance: average body habitus Orientation/consciousness: patient oriented x3 Neck Other: mild antecollis , left laterocollis Neuro Other: UPDRS - 3 Speech 1-Slight loss of expression,diction or volume Facial expression 1-Minimal hypomimia, poker face Rest Tremors( head, Upper, lower) 2-Mild in amplitude and persistent- right UE , right LE and left LE Action and Postural tremors 0-none Rigidity 2-Mild to Moderate Finger Taps 1-Mild slowing and or reduction in amplitude Hand movements 1-mild slowing and or reduction in amplitude Rapid Alternating Movements of Hands 1-Mild slowing and or reduction in amplitude Leg agility 1-mild slowing and reduction in amplitude Arising from a chair 0-Normal Posture 0-normal 1-slightly stooped, could be normal for an older person Gait 1-walks slowly,may shuffle with short steps, but no festination or propulsion- decreased arm swings R>L Postural stability 1-retropulsion but recovers unaided Body bradykinesia and hypokinesia 1-minimal slowness,giving movement a deliberate character,could be normal for some persons.Possible reduced amplitude severely decreased blink General: patient oriented x3 Cranial nerves: Yes Facial sensation intact/muscles of mastication intact, No Bilaterally intact EOM present, Yes Nystagmus not present, Yes Normal facial strength present and Yes Symmetric palate elevation present Cognition (Neuro): normal cognition Motor exam (neuro): 5/5 motor strength present throughout Coordination: [id number] test normal Psych Appearance: grossly normal Mental Status: mental status grossly normal Assessment & Plan Assessment & Plan (1) Parkinson's disease without dyskinesia: Code(s): G20.A1 - Parkinson's disease without dyskinesia, without mention of fluctuations Category: Medical (2) Back pain: Code(s): M54.9 - Dorsalgia, unspecified Category: Medical (3) Anxiety: Code(s): F41.9 - Anxiety disorder, unspecified Category: Medical Plan sinemet 25/100 1 tab tid Clonazepam 0.5mg qhs for anxiety and inxomnia Citalopram 10mg qd for anxiety Patient will call if no response. Lorazepam 0.5mg as needed for panic attacks Continue exercises- suggested therapeutic pool exercises. Medications: New citalopram 10 mg PO DAILY 30 tabs 6RF clonazepam (Klonopin) administer 30 minutes before bedtime 0.5 mg PO BEDTIME 30 tabs 3RF Coding Level of Care Code Est Pt Level 4 (67120) Complex EM visit Add On G2211 Diagnoses Parkinson's disease without dyskinesia G20.A1 Back pain M54.9 Anxiety F41.9
== END 2025-08-18 12:00 | disposition home or self-care (01) ==
LOC: HO.HSMS 10:49
PROVIDERS: PCP Internal Medicine; Visit Provider Psychiatry & Neurology Neurology
DX: G20.A1 Parkinson's disease without dyskinesia, without mention of fluctuations (principal); M54.9 Dorsalgia, unspecified; F41.9 Anxiety disorder, unspecified
CPT/HCPCS: 99214; G2211